=== PATIENT | male | born 1935 | race Hispanic/Latino ===

== ENCOUNTER 2016-08-30 11:39 | Emergency (ER) | payer OTHER ==
[~2016-08-30] VITALS: Ht 162.6 cm; Wt 68.9 kg
[2016-08-30] MEDS ORDERED: FLOMAX0.4 M1 PO (12:05)
[2016-08-30] MEDS ORDERED: METFORMIN HCL500 M3 PO (12:05)
--- NOTE | 2016-08-30 12:07 | ED GENERAL ADULT ---
History of Present Illness General Chief Complaint: Shoulder Injury Stated Complaint: R SHOULDER PAIN X 4DAYS Source: patient Exam Limitations: no limitations Vital Signs & Intake/Output Vital Signs & Intake/Output Vital Signs Date Time Temp Pulse Resp B/P B/P Pulse O2 O2 Flow FiO2 Mean Ox Delivery Rate 08/30 1558 96.7 50 16 153/74 98 Room Air 08/30 1441 96.0 56 15 129/73 97 Room Air Room Air 08/30 1236 Room Air Room Air 08/30 1153 98.0 82 20 132/61 97 Room Air Allergies Coded Allergies: No Known Allergies (08/30/16) Reconcile Medications Meloxicam (Mobic) 7.5 MG TABLET 1 TAB PO DAILY PRN PAIN Meloxicam (Mobic) 7.5 MG TABLET 1 TAB PO DAILY PRN PAIN Metformin HCl (Unknown Strength) TABLET (Unknown Dose) PO BID DIABETES ( Reported) Tamsulosin HCl (Flomax) 0.4 MG CAP.ER.24H 1 CAP PO DAILY PROSTATE (Reported) Triage Note: C/O PAIN IN R SHOULDER BLADE X 4 DAYS, OCCURRED AFTER MOVING WOOD ([employer]). PAIN RADIATES TO R CHEST, WORSE ON INSPIRATION AND BENDING FORWARD. Triage Nurses Notes Reviewed? yes Onset: Abrupt Duration: day(s): Timing: recent history HPI: 08/30/16 1:38 PM 81-year-old male presents to the emergency department with right shoulder pain. According to the patient's son he is up visiting from [place]. He has been mowing the lawn and helping his son and now he's developed severe right shoulder pain this is been ongoing for several days and seems to be getting worse. There is no chest pain or difficulty breathing. The onset of the symptoms were abrupt , the duration has been several days, the severity is significant; as his symptoms required him to come to the emergency department for care. Past History Travel History Traveled to [place] past 21 day No Medical History Any Pertinent Medical History? see below for history Endocrine: diabetes Cancer(s): prostate cancer Surgical History Surgical History: non-contributory Psychosocial History What is your primary language Romansh Tobacco Use: Never used ETOH Use: denies use Family History Hx Contributory? No Review of Systems Review of Systems Constitutional: Reports: no symptoms. EENTM: Reports: no symptoms. Respiratory: Reports: no symptoms. Denies: short of breath. Cardiovascular: Reports: no symptoms. Denies: chest pain. GI: Reports: no symptoms. Genitourinary: Reports: no symptoms. Musculoskeletal: Reports: see HPI. Skin: Reports: no symptoms. Neurological/Psychological: Reports: no symptoms. Hematologic/Endocrine: Reports: no symptoms. Immunologic/Allergic: Reports: no symptoms. All Other Systems: Reviewed and Negative Physical Exam Physical Exam General Appearance: alert, awake, anxious, mild distress Head: atraumatic, normal appearance Eyes: Bilateral: normal appearance, PERRL, EOMI. Ears, Nose, Throat: normal pharynx, normal ENT inspection Neck: normal inspection, supple, full range of motion Respiratory: normal breath sounds, chest non-tender, no respiratory distress Cardiovascular: regular rate/rhythm Peripheral Pulses: 4+ radial (R), 4+ radial (L) Gastrointestinal: soft, non-tender Back: normal range of motion Extremities: tenderness, RIGHT ANTERIOR SHOULDER WITH DECREASED RANGE OF MOTION Neurologic/Psych: no motor/sensory deficits, awake, alert, oriented x 3 Skin: intact, normal color, warm/dry Core Measures ACS in differential dx? No CVA/TIA Diagnosis: No Severe Sepsis Present: No Septic Shock Present: No Progress Differential Diagnoses I considered the following diagnoses in my evaluation of the patient: [Rotator cuff injury, arthritis, Lyme disease, shoulder strain, aortic dissection, acute coronary syndrome] Plan of Care: Orders Procedure Date/time Status Durable Medical Equipment 08/30 1633 Active TROPONIN LEVEL 08/30 1500 Complete EKG 08/30 1500 Active TROPONIN LEVEL 08/30 1209 Complete D-DIMER 08/30 1209 Complete COMPREHENSIVE METABOLIC PANEL 08/30 1209 Complete CBC WITHOUT DIFFERENTIAL 08/30 1209 Complete EKG 08/30 1151 Active Laboratory Tests 08/30/16 1500: Troponin I < 0.01 08/30/16 1230: Anion Gap 10, Estimated GFR > 60, BUN/Creatinine Ratio 19.1, Glucose 213 H, Calcium 9.0, Total Bilirubin 0.6, AST 20, ALT 30, Alkaline Phosphatase 64, Troponin I < 0.01, Total Protein 6.3, Albumin 3.8, Globulin 2.5, Albumin/ Globulin Ratio 1.5, D-Dimer High Sensitivty < 200, CBC w Diff NO MAN DIFF REQ, RBC 4.09 L, MCV 92.2, MCH 30.3, RDW 13.2, MPV 8.0, Gran % 68.9, Lymphocytes % 21.9, Monocytes % 6.1, Eosinophils % 2.8, Basophils % 0.3, Absolute Granulocytes 4.5, Absolute Lymphocytes 1.4, Absolute Monocytes 0.4, Absolute Eosinophils 0.2, Absolute Basophils 0, PUBS MCHC 32.9 L Initial ED EKG: LVH, SINUS RHYTHM, NONSPECIFIC ST ELEVATION Repeat EKG: unchanged (NO SIGNIFICANT CHANGE) Comments: EKGs were reviewed by Dr. Mike who was in agreement with the plan. Right shoulder sling was applied by the RN. Departure Departure Disposition: STILL A PATIENT Condition: Stable Clinical Impression Primary Impression: Arthritis Referrals: PATIENT HAS NO PRIMARY CARE DR (PCP/Family) Departure Forms: Customer Survey General Discharge Information Prescriptions: Current Visit Scripts Meloxicam (Mobic) 1 TAB PO DAILY PRN PAIN #10 TAB Meloxicam (Mobic) 1 TAB PO DAILY PRN PAIN #10 TAB Comments 08/30/16 4:24 PM The patient has repeat EKG that is unchanged. Repeat troponin is nondetectable. I reviewed the EKGs with Dr. Mike who was in agreement with the plan. The patient will follow-up with Dr. Mike this week and also follow up with the orthopedist. He'll take Mobic for the shoulder pain and use a sling for the next 5 days. Critical Care Note Critical Care Note Critical Care Time: non-applicable
[2016-08-30 12:51] LABS: ABSOLUTE BASOPHIL COUNT 0 /CUMM (0.0-0.2); ABSOLUTE EOSINOPHIL COUNT 0.2 /CUMM (0.0-0.7); ABSOLUTE GRANULOCYTE CT 4.5 /CUMM (1.4-6.5); ABSOLUTE LYMPH COUNT 1.4 /CUMM (1.2-3.4); ABSOLUTE MONOCYTE COUNT 0.4 /CUMM (0.10-0.60); BASOPHIL % 0.3 % (0.0-2.0); EOSINOPHIL % 2.8 % (0-5); GRANULOCYTE % 68.9 % (42.2-75.2); HEMATOCRIT 37.7 % (42-52); MEAN CORPUSCULAR HGB 30.3 PG (27.0-31.0); MEAN CORPUSCULAR HGB CONC 32.9 G/DL (33.0-37.0); MEAN CORPUSCULAR VOLUME 92.2 FL (80.0-94.0); PLATELET COUNT 259 /CUMM (130-400); RBC DISTRIBUTION WIDTH 13.2 % (11.5-14.5); RED BLOOD CELL CT 4.09 /CUMM (4.70-6.10); WHITE BLOOD CELL COUNT 6.5 /CUMM (4.8-10.8)
--- NOTE | 2016-08-30 13:26 | RADIOLOGY REPORT ---
EXAMINATION: XR SHOULDER, RIGHT XR CHEST CLINICAL INFORMATION: Right shoulder pain. COMPARISON: None TECHNIQUE: Three views of the right shoulder. 2 views, 3 images of the chest. FINDINGS: RIGHT SHOULDER: The bony alignment is intact. The cortices are intact. Mild osteophyte formations, consistent with mild osteoarthrosis is noted at the glenohumeral as well as acromioclavicular joints. The soft tissues are unremarkable. No focal osseous abnormality. CHEST: Both lung mina are symmetrically expanded and appear clear. The cardiomediastinal silhouette is within normal limits. There is no pleural effusion present. Multilevel degenerative moderate spondylosis is noted within the spine. The visualized upper abdomen is unremarkable. IMPRESSION: 1. No radiographic evidence of any acute fracture and/or dislocation is seen at the right shoulder. 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 2. No acute cardiopulmonary disease.
[2016-08-30 15:58] VITALS: BP 153/74
[2016-08-30] MEDS ORDERED: MOBIC7.5 M1 PO (16:23)
== END 2016-08-30 16:39 ==
LOC: ERH 11:39
PROVIDERS: Emergency Medicine
DX: M19.011 Primary osteoarthritis, right shoulder (principal)
CPT/HCPCS: 73030-RT; 93005; 93010; 96372; J1885; J7512